=== PATIENT | female | born 1980 | race Caucasian/White ===

== ENCOUNTER 2022-03-20 18:22 | Emergency (ER) | payer OTHER ==
[~2022-03-20] VITALS: Ht 175.3 cm; Wt 112.5 kg
[2022-03-20] MEDS ORDERED: DOXYCYCLINE HY100 MG PO (18:43)
[2022-03-20] MEDS ORDERED: [UNRECOGNIZED DRUG - CODE] (18:45)
[2022-03-20] MEDS ORDERED: HUMULIN R100 UNIT/1 INJ (20:17)
[2022-03-20] MEDS ORDERED: INSULIN GL100 UNIT/3 SUB-Q (20:17)
== END 2022-03-20 21:21 | disposition home or self-care (01) ==
LOC: ED 18:22
DX: S90.821A Blister (nonthermal), right foot, initial encounter (principal); E11.9 Type 2 diabetes mellitus without complications; X58.XXXA Exposure to other specified factors, initial encounter; Z88.2 Allergy status to sulfonamides; Z88.1 Allergy status to other antibiotic agents; Z88.8 Allergy status to other drugs, medicaments and biological substances; Z79.4 Long term (current) use of insulin
CPT/HCPCS: 90714

== ENCOUNTER 2023-01-21 22:32 | Emergency (ER) | payer OTHER ==
[~2023-01-21] VITALS: Ht 175.3 cm; Wt 103.4 kg
[~2023-01-21 22:32] MED LIST: DOXYCYCLINE HY100 MG PO; HUMULIN R100 UNIT/1 INJ; INSULIN GL100 UNIT/3 SUB-Q; [UNRECOGNIZED DRUG - CODE]
[2023-01-22] MEDS ORDERED: INSULIN LI100 UNIT/2 SQ (00:01)
[2023-01-22] MEDS ORDERED: LEVOTHYROXINE75 MCG PO (00:02)
[2023-01-22] MEDS ORDERED: LIOTHYRONINE SO5 MCG PO (00:02)
[2023-01-22] MEDS ORDERED: KURVELO-28 TAB1 EAC1 PO (00:02)
[2023-01-22 00:21] VITALS: BP 147/91
[2023-01-22] MEDS ORDERED: INSULIN GL100 UNIT/2 SUB-Q (17:36)
[2023-01-22] MEDS ORDERED: PAXLOVID 300-11 EACH PO (18:38)
== END 2023-01-22 00:23 | disposition home or self-care (01) ==
LOC: ED 22:32
DX: M54.50 Low back pain, unspecified (principal); E11.9 Type 2 diabetes mellitus without complications; Z88.2 Allergy status to sulfonamides; Z88.1 Allergy status to other antibiotic agents; Z79.4 Long term (current) use of insulin; Z79.899 Other long term (current) drug therapy
CPT/HCPCS: 81001; 84703

== ENCOUNTER 2023-01-22 17:19 | Emergency (ER) | payer OTHER ==
[~2023-01-22] VITALS: Ht 175.3 cm; Wt 103.0 kg
[~2023-01-22 17:19] MED LIST changes: +INSULIN LI100 UNIT/2 SQ; +KURVELO-28 TAB1 EAC1 PO; +LEVOTHYROXINE75 MCG PO; +LIOTHYRONINE SO5 MCG PO
--- OUTSIDE RECORDS SUMMARY | 2023-01-22 17:22 | XMS ---
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 - 2 Visits in 30 Days CARE PROVIDERS -Juli- Dentist: Ranch Hand Supervisor [facility] PHONE: [phone] [facility]: Federally Qualified 07/10/2019-[facility] [place][note 3] ([facility]) PHONE: [phone] Kelsy Cardenas-Antonio Nurse Practitioner: Family [facility] PHONE: [phone] Michael has no Care Guidelines for this patient. E.D. VISIT COUNT (12 MO.) [address] [facility] TOTAL 3 NOTE: Visits indicate total known visits. ED/UCC VISIT TRACKING (12 MO.) 01/22/2023 17:20 [facility] [place] TYPE: Emergency COMPLAINT: - CHILLS AND JUST NOT FEELING WELL 01/21/2023 22:33 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
[2023-01-22] MEDS ORDERED: INSULIN GL100 UNIT/2 SUB-Q (17:36)
[2023-01-22] MEDS ORDERED: PAXLOVID 300-11 EACH PO (18:38)
[2023-01-22 18:47] VITALS: BP 138/77
== END 2023-01-22 18:48 | disposition home or self-care (01) ==
LOC: ED 17:19
DX: U07.1 COVID-19 (principal); E11.9 Type 2 diabetes mellitus without complications; Z88.2 Allergy status to sulfonamides; Z88.1 Allergy status to other antibiotic agents; Z79.4 Long term (current) use of insulin; Z79.899 Other long term (current) drug therapy
CPT/HCPCS: 87502; A9270; C9803; J1885; U0002